=== PATIENT | male | born 1975 | race Caucasian/White ===

== ENCOUNTER 2021-07-28 02:17 | Emergency (ER) | payer OTHER ==
[2021-07-28 03:19] VITALS: RESP 20; TEMP 97.8
--- NOTE | 2021-07-28 03:28 | XR ---
EXAMINATION TYPE: XR chest 1V portable DATE OF EXAM: 07/28/2021 COMPARISON: NONE HISTORY: Cough TECHNIQUE: FINDINGS: There is no heart failure nor confluent pneumonic infiltrate. Costophrenic angles are clear . Heart size is normal. Bony thorax is intact. IMPRESSION: No active cardiopulmonary disease.
--- NOTE | 2021-07-28 04:10 | ED ---
URI HPI - General Chief Complaint: Upper Respiratory Infection Stated Complaint: Shortness of Breath Time Seen by Provider: 07/28/21 02:34 Source: patient, family, RN notes reviewed, old records reviewed Mode of arrival: ambulatory Limitations: no limitations - History of Present Illness Initial Comments: Is a 45-year-old male presents today for concern of coronavirus. Patient does have coronavirus test 3 days ago which was negative. Patient is increased shortness of breath cough congestion. His history of smoking. No prior history of significant shortness of breath like this. Bodyaches pains chills. Patient will covert tonight and severely short of breath. No chest pain MD Complaint: fever, cough, sore throat -: days(s) Severity: moderate Severity scale (1-10): 6 Quality: burning Consistency: intermittent Improves With: nothing Worsens With: activity, deep breaths Context: sick contacts Associated Symptoms: fever, chills, myalgias, cough, chest pain Treatments Prior to Arrival: none - Related Data Previous Rx's Medication Instructions Recorded Albuterol Sulfate [Proair Hfa] 1 - 2 puff INHALATION Q4H PRN #8.5 07/28/21 gm Azithromycin [Zithromax Z-pack (6 0 mg PO DIRECTED #1 packet 07/28/21 tabs)] Allergies Allergy/AdvReac Type Severity Reaction Status Date / Time Penicillins Allergy Rash/Hives Verified 07/28/21 02:30 Review of Systems ROS Statement: Those systems with pertinent positive or pertinent negative responses have been documented in the HPI. ROS Other: All systems not noted in ROS Statement are negative. Past Medical History Past Medical History: No Reported History History of Any Multi-Drug Resistant Organisms: None Reported Past Surgical History: No Surgical Hx Reported Past Psychological History: No Psychological Hx Reported Smoking Status: Current every day smoker Past Alcohol Use History: None Reported Past Drug Use History: None Reported General Exam Limitations: no limitations General appearance: alert, in no apparent distress Head exam: Present: atraumatic, normocephalic, normal inspection Eye exam: Present: normal appearance, PERRL, EOMI. Absent: scleral icterus, conjunctival injection, periorbital swelling ENT exam: Present: normal exam, mucous membranes moist Neck exam: Present: normal inspection. Absent: tenderness, meningismus, lymphadenopathy Respiratory exam: Present: normal lung sounds bilaterally. Absent: respiratory distress, wheezes, rales, rhonchi, stridor Cardiovascular Exam: Present: normal rhythm, tachycardia, normal heart sounds. Absent: systolic murmur, diastolic murmur, rubs, gallop, clicks GI/Abdominal exam: Present: soft, normal bowel sounds. Absent: distended, tenderness, guarding, rebound, rigid Extremities exam: Present: normal inspection, full ROM, normal capillary refill. Absent: tenderness, pedal edema, joint swelling, calf tenderness Back exam: Present: normal inspection Neurological exam: Present: alert, oriented X3, CN II-XII intact Psychiatric exam: Present: normal affect, normal mood Skin exam: Present: warm, dry, intact, normal color. Absent: rash Course Vital Signs 07/28/21 07/28/21 07/28/21 02:28 02:57 03:00 Temperature 97.8 F Pulse Rate 102 H 87 Respiratory 24 15 20 Rate Blood Pressure 120/85 117/81 O2 Sat by Pulse 97 97 Oximetry 07/28/21 07/28/21 07/28/21 04:15 04:17 04:23 Temperature Pulse Rate 94 94 96 Respiratory 20 Rate Blood Pressure 105/68 O2 Sat by Pulse 97 Oximetry - Reevaluation(s) Reevaluation #1: Medical record is reviewed Patient symptoms are improved here in the ER Patient informed results questions answered Medical Decision Making - Medical Decision Making 45 male DF for evaluation of cough congestion upper Estrace infection noted. X- rays negative coronavirus testing is negative and patient can be discharged home - Lab Data Lab Results 07/28/21 Range/Units 03:59 Coronavirus (PCR) Not Detected (Not Detectd) - Radiology Data Radiology results: report reviewed (Chest x-rays negative for acute disease), image reviewed Disposition Clinical Impression: Upper respiratory tract infection Disposition: HOME SELF-CARE Condition: Good Instructions (If sedation given, give patient instructions): Upper Respiratory Infection (ED) Prescriptions: Albuterol Sulfate [Proair Hfa] 1 - 2 puff INHALATION Q4H PRN #8.5 gm PRN Reason: Shortness Of Breath Azithromycin [Zithromax Z-pack (6 tabs)] 0 mg PO DIRECTED #1 packet Is patient prescribed a controlled substance at d/c from ED?: No Referrals: Blayne Briseno MD [Primary Care Provider] - 1-2 days
[2021-07-28] MEDS: ACETAMINOPHEN TAB 500 MG TAB PO STA (04:13)
[2021-07-28] MEDS: dexAMETHasone 2 MG TAB PO STA (04:13)
[2021-07-28] MEDS: IBUPROFEN 800 MG TAB PO STA (04:14)
[2021-07-28] MEDS: IPRATROPIUM-ALBUTEROL 3 ML NEB INHALATION STA (04:15)
[2021-07-28 04:16] VITALS: BP 105/68
[2021-07-28 04:23] VITALS: PULSE 96
== END 2021-07-28 05:22 | disposition home or self-care (01) ==
LOC: EC 02:17
DX: J06.9 Acute upper respiratory infection, unspecified (principal); F17.200 Nicotine dependence, unspecified, uncomplicated; Z20.822 Contact with and (suspected) exposure to COVID-19; Z72.89 Other problems related to lifestyle
CPT/HCPCS: 94640; 87635; 71045; 99283; J8540

== ENCOUNTER → 2023-03-19 | Outpatient (CLI) | payer BC ==
--- NOTE | 2023-03-19 13:58 | CT ---
EXAMINATION TYPE: CT iac wo con DATE OF EXAM: 03/19/2023 COMPARISON: None HISTORY: 47-year-old male H68.021, Chronic Eustachian salpingitis, right ear CT DLP: 142.70 mGycm Automated exposure control for dose reduction was used. TECHNIQUE: Contiguous high-resolution axial scanning of the temporal bones performed without IV cont rast. Coronal reformatted images obtained. FINDINGS: There is no abnormality of visualized intracranial structures. The skull base appears normal. The external auditory canals appear normal. The mastoid air cells and middle ear cavities are well pneumatized. There appears to be minimal asymm etric thickening of the right tympanic membrane with what appears to be a myringotomy tube. There is no abnormality of middle ear ossicles. The round and oval windows are normal. There is no abnormality of bony labyrinths. The vestibular an cochlear aqueducts are well visualized. The facial nerve canal is normal bilaterally. The internal auditory canal and meati are symmetrical bilaterally. There is no evidence of fractures. Slight leftward nasal septal deviation. There seems to be some rounded soft tissue prominence along the posterior nasopharynx measuring up to 1.5 cm, and axial image 29. Scattered trace mucosal thickening ethmoid air cells. Mild mucosal thickening right sphenoid sinus. Incidental fusion defect C1 posterior arch. Reformatted images confirm above findings. IMPRESSION: 1. There may be trace asymmetric thickening of the right tympanic membrane with suspected myringotomy tube. 2. Rounded soft tissue prominence involving the posterior nasopharynx measuring up to 1.5 cm. Conside r contrast enhanced CT or MRI to further evaluate. Underlying adenoid hypertrophy, Thornwaldt cyst, o r other mucosal lesion are in the differential. 3. Mild chronic ethmoid and right sphenoid sinus disease.
== END | disposition home or self-care (01) ==
LOC: RADCTMAIN 08:27
PROVIDERS: ATTEND Otolaryngology
DX: H68.021 Chronic Eustachian salpingitis, right ear (principal); J32.2 Chronic ethmoidal sinusitis; J32.3 Chronic sphenoidal sinusitis; M79.89 Other specified soft tissue disorders
CPT/HCPCS: 70480

== ENCOUNTER 2023-04-26 23:51 | Emergency (ER) | payer BC ==
[2023-04-27 00:29] VITALS: TEMP 97.7
--- NOTE | 2023-04-27 01:12 | ED ---
General Adult HPI - General Chief complaint: Upper Respiratory Infection Stated complaint: Ear pain Time Seen by Provider: 04/27/23 00:23 Source: patient Mode of arrival: ambulatory Limitations: no limitations - History of Present Illness Initial comments: 47-year-old male presenting to the ED with a chief complaint of right ear pain. Patient notes that he follows with Dr. Roque and notes history of ear tube in right ear. She states over the past 3 days has had symptoms of rhinorrhea, congestion, sinus pressure. Today, started to notice pain of his right ear prompted presentation to the ED for further evaluation. Denies fever or chills. No chest or shortness of breath. No other complaints. - Related Data Previous Rx's Medication Instructions Recorded Albuterol Sulfate [Proair Hfa] 1 - 2 puff INHALATION Q4H PRN #8.5 07/28/21 gm Azithromycin [Zithromax Z-pack (6 0 mg PO DIRECTED #1 packet 07/28/21 tabs)] Amoxic-Pot Clav 875-125Mg 1 tab PO Q12HR #14 tab 04/27/23 [Augmentin 875-125] Allergies Allergy/AdvReac Type Severity Reaction Status Date / Time Penicillins Allergy Rash/Hives Verified 07/28/21 02:30 Review of Systems ROS Statement: Those systems with pertinent positive or pertinent negative responses have been documented in the HPI. ROS Other: All systems not noted in ROS Statement are negative. Past Medical History Past Medical History: No Reported History History of Any Multi-Drug Resistant Organisms: None Reported Past Surgical History: Ear Surgery Past Psychological History: No Psychological Hx Reported Smoking Status: Current every day smoker Past Alcohol Use History: Rare Past Drug Use History: None Reported General Exam Limitations: no limitations General appearance: alert, in no apparent distress Eye exam: Present: normal appearance ENT exam: Present: other (Right TM has tube in place. TM does appear to have some areas of erythema otherwise intact. No purulent drainage. No mastoid process warmth, erythema, edema, tenderness to palpation.) Respiratory exam: Present: normal lung sounds bilaterally Cardiovascular Exam: Present: regular rate, normal rhythm Back exam: Present: normal inspection Neurological exam: Present: alert, oriented X3 Skin exam: Present: warm, dry Course Vital Signs 04/26/23 23:52 Temperature 97.7 F Pulse Rate 85 Respiratory 16 Rate Blood Pressure 155/78 O2 Sat by Pulse 98 Oximetry Medical Decision Making - Medical Decision Making Was pt. sent in by a medical professional or institution ([facility], [employer], urgent care, hospital, or fci...) When possible be specific @ -No Did you speak to anyone other than the patient for history (EMS, parent, family, police, friend...)? What history was obtained from this source @ -No Did you review nursing and triage notes (agree or disagree)? Why? @ -I reviewed and agree with nursing and triage notes Were old charts reviewed (outside hosp., previous admission, EMS record, old EKG, old radiological studies, urgent care reports/EKG's, fci records)? Report findings @ -No old charts were reviewed Differential Diagnosis (chest pain, altered mental status, abdominal pain women, abdominal pain men, vaginal bleeding, weakness, fever, dyspnea, syncope, headache, dizziness, GI bleed, back pain, seizure, CVA, palpatations, mental health, musculoskeletal)? @ -Otitis media, otitis externa, malignant otitis externa. This is not meant to be an all-inclusive list. EKG interpreted by me (3pts min.). @ -None X-rays interpreted by me (1pt min.). @ -None done CT interpreted by me (1pt min.). @ -None done U/S interpreted by me (1pt. min.). @ -None done What testing was considered but not performed or refused? (CT, X-rays, U/S, labs)? Why? @ -None What meds were considered but not given or refused? Why? @ -None Did you discuss the management of the patient with other professionals (professionals i.e. [facility] Carrera, [employer], lab, RT, psych nurse, social research assistant, web marketing intern, teacher, commanding officer homicide squad, telephonic nurse case manager)? Give summary @ -No Was smoking cessation discussed for >3mins.? @ -No Was critical care preformed (if so, how long)? @ -No Were there social determinants of health that impacted care today? How? (Homelessness, low income, unemployed, alcoholism, drug addiction, transportation, low edu. Level, literacy, decrease access to med. care, halfway, rehab)? @ -No Was there de-escalation of care discussed even if they declined (Discuss DNR or withdrawal of care, Hospice)? DNR status @ -No What co-morbidities impacted this encounter? (DM, HTN, Smoking, COPD, CAD, Cancer, CVA, ARF, Chemo, Hep., AIDS, mental health diagnosis, sleep apnea, morbid obesity)? @ -None Was patient admitted / discharged? Hospital course, mention meds given and route, prescriptions, significant lab abnormalities, going to OR and other pertinent info. @ -Discharge 47-year-old male presenting to the ED with 3 days of URI symptoms and 1 day of right ear pain. Exam did show TM is intact with tube in place however some areas of erythema. No drainage. No mastoid process tenderness to palpation, warmth, erythema, edema. At this time, vital signs stable, afebrile. Patient prior prescription for Augmentin and discharged home in stable condition with i nstructions to follow up with Dr. Ya. Discussed return precautions with patient verbalizes agreement. Undiagnosed new problem with uncertain prognosis? @ -No Drug Therapy requiring intensive monitoring for toxicity (Heparin, Nitro, Insulin, Cardizem)? @ -No Were any procedures done? @ -No Diagnosis/symptom? @ -Otitis media Acute, or Chronic, or Acute on Chronic? @ -Acute Uncomplicated (without systemic symptoms) or Complicated (systemic symptoms)? @ -Uncomplicated Side effects of treatment? @ -No Exacerbation, Progression, or Severe Exacerbation? @ -No Poses a threat to life or bodily function? How? (Chest pain, USA, PA, pneumonia, PE, COPD, DKA, ARF, appy, cholecystitis, CVA, Diverticulitis, Homicidal, Suicidal, threat to staff... and all critical care pts) @ -No Disposition Clinical Impression: Otitis media Disposition: HOME SELF-CARE Condition: Good Additional Instructions: Please return to the Emergency Department if symptoms worsen or any other concerns. Please follow up with your ENT. Prescriptions: Amoxic-Pot Clav 875-125Mg [Augmentin 875-125] 1 tab PO Q12HR #14 tab Is patient prescribed a controlled substance at d/c from ED?: No Referrals: Krystin Hutchison MD [Primary Care Provider] - 1-2 days Time of Disposition: 01:14
[2023-04-27] MEDS ORDERED: AMOXIC-POT CLAV 875-125MG 1 EACH TAB PO STA (01:15)
[2023-04-27 01:51] VITALS: BP 107/75; PULSE 76; RESP 18
== END 2023-04-27 01:24 | disposition home or self-care (01) ==
LOC: EC 23:51
DX: H66.91 Otitis media, unspecified, right ear (principal); F17.200 Nicotine dependence, unspecified, uncomplicated; Z88.0 Allergy status to penicillin
CPT/HCPCS: 99283

== ENCOUNTER → 2023-05-07 | Outpatient (CLI) | payer BC ==
--- NOTE | 2023-05-07 11:13 | CT ---
EXAMINATION TYPE: CT iac w con DATE OF EXAM: 05/07/2023 COMPARISON: Prior CT IAC With March 19, 2023 HISTORY: right ear pain x8 months CT DLP: 150 mGycm. Automated Exposure Control for Dose Reduction was Utilized. TECHNIQUE: CT scan of internal auditory canal is performed with IV contrast, thin cut axial images ar e obtained, coronal reformatted images are also reviewed. Patient injected with 100 cc of Isovue-300 . FINDINGS: The external auditory canals remain patent bilaterally. Right sided myringotomy tube once a gain suspected. Mastoid Air cells show no evidence of abnormal opacification bilaterally. The middle ear ossicles are symmetric and unremarkable. There is no evidence of suspicious surroundi ng soft tissue density to suggest cholesteatoma. The scutum is preserved bilaterally. The cochlea and the semicircular canals are symmetric and unremarkable. There is satisfactory superio r bony coverage of the superior semicircular canal. Vestibular aqueduct and internal carotid canal ap pear unremarkable. Temporomandibular joints are maintained bilaterally. Moderate to severe mucosal thickening of the rig ht maxillary sinus with dependent fluid is now noted. Deqm-py-echcknuw mucosal thickening in visualiz ed portion of the ethmoid sinuses is seen. Visualized portion brain parenchyma is felt within normal limits. No suspicious enhancing masses are present. IMPRESSION: Right maxillary sinus disease is now present. No significant new abnormality otherwise se en to account for patient's symptoms.
== END | disposition home or self-care (01) ==
LOC: RADCTMAIN 08:57
PROVIDERS: ATTEND Family Medicine
DX: J32.0 Chronic maxillary sinusitis (principal); H93.8X1 Other specified disorders of right ear; H92.01 Otalgia, right ear; R93.89 Abnormal findings on diagnostic imaging of other specified body structures; Z96.22 Myringotomy tube(s) status
CPT/HCPCS: 70481; Q9967

== ENCOUNTER → 2023-08-27 | Day surgery (SDC) | payer BC ==
[~2023-08-27] MED LIST: HYDROmorphone 0.5 MG/0.5 ML SYRINGE IVP PRN; LIDOCAINE 1% INJ 10MG/ML (20 ML MDV) ONE; MIDAZOLAM 2 MG/2 ML VIAL IV PRN; MIDAZOLAM 2 MG/2 ML VIAL ONE; PROPOFOL 10 MG/ML 20 ML VIAL IV ONE; fentaNYL (PF) 50 MCG/ML 2 ML AMP ONE
[2023-08-27] MEDS: LIDOCAINE 1% (10MG/ML) FOR IV START INTRADERMA PRN (11:36)
[2023-08-27] MEDS: LACTATED RINGERS 1,000 ML IV SCH (11:36)
[2023-08-27] MEDS: DEXAMETHASONE SOD PHOSPHATE 4 MG/ML 1 ML VIAL IV ONE (11:38)
[2023-08-27] MEDS: FAMOTIDINE 20 MG/2 ML VIAL IV PRN (11:38)
[2023-08-27] MEDS: ONDANSETRON 4 MG/2 ML VIAL IVP ONE (11:38)
[2023-08-27] MEDS: OFLOXACIN 0.3% OPHTH DROPS 5 ML BOTTLE RIGHT EAR ONE (12:49)
--- NOTE | 2023-08-27 13:00 | P.OP ---
Date of Procedure: 08/27/23 Preoperative Diagnosis: Right eustachian tube dysfunction with retained right ventilation tube Postoperative Diagnosis: Same Procedure(s) Performed: Right ear microscopy with removal retained right ventilation tube and right myringoplasty Anesthesia: AUDREY Surgeon: Matias Monroe Estimated Blood Loss (ml): 0 Pathology: none sent Condition: stable Disposition: PACU Indications for Procedure: This is a 47-year-old white male who had ventilation tubes placed previously last year and is done well but once this removed so that he does not have to have water exposure protection anymore. Operative Findings: Retained right ventilation tube in good position middle ear through the myringotomy site appeared unremarkable Description of Procedure: The patient brought in the operative suite and placed in a supine position. Patient underwent induction of general anesthesia with oral endotracheal intubation without difficulty. The patient was prepped and draped in usual aseptic fashion. The Zeiss microscope were brought into position over the right ear. Cerumen was cleaned from the external auditory canal. The ventilation tube was well visualized and was removed with alligator forceps without difficulty. The edges of the myringotomy were freshened with cup forceps and a biodesign graft was placed in lateral onlay fashion. This was left dry. Sterile cottonball was placed. The patient was allowed to emerge from general anesthesia having tolerated procedure well was extended the operating suite and transferred to postop recovery area in satisfactory condition.
[2023-08-27 13:25] VITALS: RESP 14; TEMP 97
[2023-08-27 14:02] VITALS: BP 115/69; PULSE 55
== END | disposition home or self-care (01) ==
LOC: OR 10:43
PROVIDERS: ATTEND Otolaryngology
DX: H69.91 Unspecified Eustachian tube disorder, right ear (principal); H90.3 Sensorineural hearing loss, bilateral; Z88.0 Allergy status to penicillin; Z79.899 Other long term (current) drug therapy
CPT/HCPCS: 69620; C1763; J2250; J1100; J2405; J2001; J3010; J3490; J2704

== ENCOUNTER → 2024-09-07 | Day surgery (SDC) | payer OTHER ==
[2024-09-06 14:30] VITALS: BMI 23.6
[~2024-09-07] MED LIST changes: -HYDROmorphone 0.5 MG/0.5 ML SYRINGE IVP PRN; -MIDAZOLAM 2 MG/2 ML VIAL IV PRN; -MIDAZOLAM 2 MG/2 ML VIAL ONE; -fentaNYL (PF) 50 MCG/ML 2 ML AMP ONE
[2024-09-07] MEDS: IV FLUID CONTINUATION 1,000 ML IV ONE (11:46)
[2024-09-07 11:48] VITALS: TEMP 98.7
[2024-09-07] MEDS: LACTATED RINGERS 1,000 ML BAG IV STA (11:51)
--- NOTE | 2024-09-07 12:22 | P.PCN ---
Date of Procedure: 09/07/24 Procedure(s) Performed: PREOPERATIVE DIAGNOSIS: GERD, dysphagia, screening POSTOPERATIVE DIAGNOSIS: Gastritis, moderate-sized hiatal hernia, colon polyps, diverticulosis PROCEDURE: 1. EGD with biopsy 2. Colonoscopy with snare polypectomy ANESTHESIA: MAC SURGEON: Ernesto Gomes M.D. SPECIMENS: Antrum, polyp ENDOSCOPIC PROCEDURE: The patient was on the endoscopy table in the left decubitus position. The Olympus gastroscope was inserted into the oropharynx and passed under direct visualization to the region of the third portion of the duodenum. From that point the scope was slowly withdrawn inspecting all surfaces carefully. There were no neoplastic inflammatory or polypoid lesions throughout the duodenum. The pylorus was widely patent. The stomach was carefully inspected. There was mild gastritis present. A biopsy of the antrum took place to rule out H. pylori. Retroflexion revealed a moderate-sized hiatal hernia. The GE junction was present 5 cm above the diaphragmatic hiatus. There was no evidence of narrowing or inflammatory changes at the GE junction. The remainder of the esophagus was free of abnormalities. The patient was kept on the endoscopy table in the left decubitus position. The Olympus colonoscope was inserted into the anus and passed under direct visualization to the base of the cecum. The appendiceal orifice was visualized. From that point the scope was slowly withdrawn inspecting all surfaces carefully. There were no neoplastic inflammatory or polypoid lesions throughout the cecum, ascending, transverse, and descending colon. In the sigmoid colon there was noted to be a small polyp that was removed using the snare with cautery technique. The remainder of the sigmoid was rectum. In the distal rectum a smaller polyp was seen and removed using the cold snare technique. The patient had scattered diverticulosis throughout the colon. Digital rectal examination was normal. The patient was taken to the recovery room in stable condition per anesthesia guidelines. RECOMMENDATIONS: Await biopsy results. Will discuss upper endoscopy findings. Hiatal hernia certainly contributing to the patient's intermittent dysphagia. Will discuss surgical options further. Timing for colonoscopy based on pathology of colon polyps.
[2024-09-07 12:42] VITALS: BP 110/74; PULSE 67; RESP 16
== END ==
LOC: ORWHC2ENDO 11:01
PROVIDERS: ATTEND Surgery
DX: Z12.11 Encounter for screening for malignant neoplasm of colon (principal); K29.50 Unspecified chronic gastritis without bleeding; K44.9 Diaphragmatic hernia without obstruction or gangrene; K57.30 Diverticulosis of large intestine without perforation or abscess without bleeding; K62.1 Rectal polyp; K63.5 Polyp of colon; F41.9 Anxiety disorder, unspecified; Z87.891 Personal history of nicotine dependence; Z79.899 Other long term (current) drug therapy
CPT/HCPCS: 88305; 45385; 43239; J2003; J2704